=== PATIENT | male | born 1960 | race Caucasian/White ===

== ENCOUNTER 2017-01-21 18:27 | Emergency (ER) | payer OTHER ==
[~2017-01-21] VITALS: Ht 179.1 cm; Wt 102.8 kg
[2017-01-21] MEDS ORDERED: ASPIRIN 81 MG TABLET CHEW PO ONE (19:00)
[2017-01-21] MEDS ORDERED: HYDROC (19:09)
[2017-01-21] MEDS ORDERED: LISINOPRIL (19:09)
[2017-01-21] MEDS ORDERED: ALLO100T30 PO (19:10)
[2017-01-21] MEDS ORDERED: ASPIRIN 81 MG TABLET CHEW ONE (19:17)
[2017-01-21 19:22] LABS: HEMATOCRIT 48.6 % (39.2-51.8); HEMOGLOBIN 16.6 g/dL (13.7-18.0); WHITE BLOOD COUNT 8.6 x10^3/uL (3.4-10)
[2017-01-21 19:33] LABS: ASPARTATE AMINO TRANSFERASE 38 U/L (15-37); BLOOD UREA NITROGEN 34 mg/dL (7-18)
[2017-01-21 19:38] LABS: IS PT STATUS REG ER OR PRE ER? YES
[2017-01-21] MEDS ORDERED: SODIUM CHLORIDE FLUSH 10ML SYR IVF ONE (20:00)
[2017-01-21] MEDS ORDERED: POTASSIUM CHLORIDE 20 MEQ TAB.ER.PRT PO ONE (20:00)
[2017-01-21] MEDS ORDERED: SODIUM CHLORIDE 0.9% 1,000ML IVBOLUS ONE (20:00)
[2017-01-21] MEDS ORDERED: SODIUM CHLORIDE 0.9%, 500ML IVBOLUS ONE (20:30)
[2017-01-21] MEDS ORDERED: POTASSIUM CHLORIDE 20 MEQ TAB.ER.PRT ONE (20:40)
[2017-01-21 21:09] VITALS: BP 123/77
== END 2017-01-21 21:13 | disposition home or self-care (01) ==
LOC: ED 20:33
DX: I95.1 Orthostatic hypotension (principal); E86.0 Dehydration; E87.6 Hypokalemia; I10 Essential (primary) hypertension
CPT/HCPCS: 36415; 71010; 80053; 82533; 83735; 84443; 84484; 85025; 93005; 99285; J7030; J7040